=== PATIENT | male | born 1960 | race Two or more races ===

== ENCOUNTER → 2016-12-21 | Day surgery (SDC) | payer OTHER ==
[~2016-12-21] MED LIST: ACET325T9 PO; CARV25TA PO; FURO-69 PO; HYDROmorphone 2 MG/ML VIAL IV PRN; IV RINGERS,LACTATED 1000ML 1,000 ML IV SCH; LIDOCAINE 1% 1 ML SYRINGE. ID PRN; LIDOCAINE 2% PF Vial for OR 5 ML VIAL. ONE; MORPHINE SULFATE 4 MG/ML DISP.SYRIN. IV PRN; ONDANSETRON PF 4 MG/2 ML VIAL. IV PRN; PANT20TA2 PO; PROCHLORPERAZINE 10 MG/2 ML VIAL. IV PRN; PROPOFOL 40 ML IV ONE; SIME40DR30 PO; SPIR50TA2 PO; TAMS0.4C97 PO; fentaNYL PF VIAL 100 MCG/2 ML VIAL IV PRN
[2016-12-21 13:34] VITALS: BP 104/68
--- NOTE | 2016-12-21 21:50 | HP ---
ADMIT DATE: 12/21/2016 REASON FOR FOLLOW UP: History of varices and colorectal screening. HISTORY OF PRESENT ILLNESS: A 56-year-old male with past medical history significant for cirrhosis, BPH, tobacco use and esophageal varices, is seen for surveillance exam. He has had no bleeding in the interim. No dysphagia or odynophagia. Bowel habits have been regular without diarrhea or constipation. There has been no melena and/or hematochezia. He is otherwise without additional complaints. PAST MEDICAL HISTORY: BPH, tobaccoism, cirrhosis with varices. MEDICATIONS: Presently include carvedilol 25 mg b.i.d., furosemide 20 mg daily, pantoprazole 40 mg daily, spironolactone 50 mg b.i.d., and tamsulosin/Flomax 0.4 mg daily. ALLERGIES: None. REVIEW OF SYSTEMS: Per records. PHYSICAL EXAMINATION: GENERAL: Reveals a thin male. VITAL SIGNS: Temperature is 98.8, pulse is 56, respirations 20. HEENT: Normocephalic and atraumatic head. Pupils and extraocular muscles not tested. Sclerae anicteric. NECK: Supple. LUNGS: Clear. CARDIOVASCULAR: Reveals an S1, S2 without S3, S4 or appreciable murmur. ABDOMEN: Reveals a soft abdomen, normal bowel sounds, with hepatosplenomegaly. EXTREMITIES: Reveals no cyanosis, clubbing or edema. IMPRESSION: History of varices with cirrhosis. PLAN: 1. Upper endoscopy with surveillance is recommended. 2. Colorectal screening. Risks and benefits of procedure including risk of perforation during the operation have been discussed with the patient previously, is willing to proceed at this time. KEITH CLARK MD DR: SHIVAM/maida JOB#: [id number] / [id number] ecc ,
== END | disposition home or self-care (01) ==
LOC: ENDOS 11:06
PROVIDERS: ATTEND Internal Medicine Gastroenterology
DX: Z12.11 Encounter for screening for malignant neoplasm of colon (principal); K64.0 First degree hemorrhoids; K85.00 Idiopathic acute pancreatitis without necrosis or infection; K29.50 Unspecified chronic gastritis without bleeding; I10 Essential (primary) hypertension; J45.909 Unspecified asthma, uncomplicated; K21.9 Gastro-esophageal reflux disease without esophagitis; M19.90 Unspecified osteoarthritis, unspecified site; F17.200 Nicotine dependence, unspecified, uncomplicated
CPT/HCPCS: 43235; 45378; J2001; J2704